=== PATIENT | male | born 1995 | race Caucasian/White ===

== ENCOUNTER 2018-01-10 01:56 | Emergency (ER) | payer MEDICAID ==
[~2018-01-10] VITALS: Ht 175.3 cm; Wt 81.6 kg
[2018-01-10 02:01] VITALS: BP_SYST 162
[2018-01-10] MEDS ORDERED: BACITRACIN 1 GM OINT TP ONE (02:30)
[2018-01-10] MEDS ORDERED: ACETAMINOPHEN 500 MG TABLET PO ONE (02:30)
[2018-01-10] MEDS ORDERED: MECLIZINE HCL 25 MG TABLET (ANITVERT) PO ONE (02:30)
[2018-01-10 03:20] VITALS: BP_SYST 162
== END 2018-01-10 03:20 | disposition home or self-care (01) ==
LOC: SED 01:56
DX: S06.0X0A Concussion without loss of consciousness, initial encounter (principal); V00.131A Fall from skateboard, initial encounter; Y93.51 Activity, roller skating (inline) and skateboarding; Y92.89 Other specified places as the place of occurrence of the external cause; Y99.8 Other external cause status
CPT/HCPCS: 70450; 99284; J8597

== ENCOUNTER 2019-07-19 22:35 | Emergency (ER) | payer OTHER, MEDICAID ==
[~2019-07-19] VITALS: Ht 175.3 cm; Wt 61.2 kg
[2019-07-19 22:35] VITALS: BP_SYST 157
[2019-07-19] MEDS ORDERED: DIPH-TET-PERTUS Vaccine 0.5 ML VIAL (ADACEL) I.M. ONE (23:30)
[2019-07-20] VITALS: BP_SYST 121
== END 2019-07-20 | disposition home or self-care (01) ==
LOC: SED 22:35
DX: S61.419A Laceration without foreign body of unspecified hand, initial encounter (principal); J06.9 Acute upper respiratory infection, unspecified; R19.7 Diarrhea, unspecified; Z88.8 Allergy status to other drugs, medicaments and biological substances; X58.XXXA Exposure to other specified factors, initial encounter; Y93.89 Activity, other specified; Y92.89 Other specified places as the place of occurrence of the external cause; Y99.8 Other external cause status
CPT/HCPCS: 90715; 99283